=== PATIENT | female | born 1990 | race Caucasian/White ===

== ENCOUNTER 2016-10-22 07:59 | Observation (INO) | payer OTHER ==
[2016-10-22 08:07] VITALS: RESP 16
--- NOTE | 2016-10-22 08:09 | EDPHY ---
H & P Stated Complaint: Bit on R finger yesterday by vaccinated cat at vet office HPI/ROS: HPI CHIEF COMPLAINT: cat bite right hand, right index finger swelling pain and redness HISTORY OF PRESENT ILLNESS: This patient 26-year-old female otherwise healthy no significant medical history does have multiple allergies to multiple antibiotics, she presents emergency room with a cat bite to the right index finger this sustained yesterday while at work. 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 The CT is still in the veterinary office. She is up-to-date on tetanus shot. She presents emergency room due to right index finger swelling pain and redness. There is a obvious bite jairo to the palmar aspect and lateral aspect of the right index finger. Of note on evaluation the right index finger is swollen diffusely, sausage digit , erythema, no neeru pus, it is tender palpation, she is not able to extend the index finger fully due to pain and swelling. It does stay in a flexed position. There is concern for flexor tenosynovitis. patient is right-hand dominant Past Medical History: No medical history Past Surgical History: No surgical history Social History: Denies daily use of drugs alcohol tobacco products, works as a [employer] Family History: Noncontributory ROS REVIEW OF SYSTEMS: A comprehensive 10 point review of systems is otherwise negative aside from elements mentioned in the history of present illness. Exam Constitutional triage nursing summary reviewed, vital signs reviewed, awake/ alert. Eyes normal conjunctivae and sclera, EOMI, PERRLA. HENT normal inspection, atraumatic, moist mucus membranes, no epistaxis, neck supple/ no meningismus, no raccoon eyes. Respiratory clear to auscultation bilaterally, normal breath sounds, no respiratory distress, no wheezing. Cardiovascular rate normal, regular rhythm, no murmur, no edema, distal pulses normal. Gastrointestinal soft, non-tender, no rebound, no guarding, normal bowel sounds, no distension, no pulsatile mass. Genitourinary no CVA tenderness. Musculoskeletal right hand: Index finger is diffusely swollen sausage digit, kept in a flexed position, pain with extension, warm and red obvious cat bite marking. no midline vertebral tenderness, full range of motion, no calf swelling, no tenderness of extremities, no meningismus, good pulses, neurovascularly intact. Skin pink, warm, & dry, no rash, skin atraumatic. Neurologic awake, alert and oriented x 3, AAOx3, moves all 4 extremities equally, motor intact, sensory intact, CN II-XII intact, normal cerebellar, normal vision, normal speech. Psychiatric normal mood/affect. Heme/Lymph/Immune no lymphadenopathy. Differential Diagnosis: Includes but is not limited to in a particular order CAT bite injury, hand infection, finger infection, flexor tenosynovitis., Foreign body in bite wound Medical Decision Making: plan for this patient stab a digit x-ray to evaluate for foreign body, she will be started on antibiotics however she has multiple allergies to antibiotics. Upon review of antibiotic choices she is allergic to penicillin this causes throat swelling, so I cannot give her Augmentin I will give her doxycycline she has never had allergy to this. She does have allergies to sulfa and clinda. Re-evaluation: ED x-ray: right index finger or 2nd digit, soft tissue swelling present. No foreign body visualized. 0907: I did speak with Hand surgery [facility] for Dr. Greer they will come and evaluate her. Most likely plan is for washout. 1st dose of doxycycline has been given here in the emergency room she tolerated this well. X-ray has been reviewed shows no foreign body. Patient updated and is comfortable with most likely OR washout. 0953: Spoke with Hand surgery Kar[facility] for Dr. Greer they would like this patient admitted to the hospital plan for OR later today. Make patient NPO. They requested we hold antibiotics at this time except for the initial dose of doxycycline as they want to get a wound culture. Source: Patient - Personal History LMP (Females 10-55): 8-14 Days Ago Current Tetanus Diphtheria and Acellular Pertussis (TDAP): Yes - Medical/Surgical History Other PMH: healthy - Social History Smoking Status: Current some day smoker Constitutional: Initial Vital Signs Temperature (C) 36.6 C 10/22/16 08:00 Heart Rate 72 10/22/16 08:00 Respiratory Rate 16 10/22/16 08:00 Blood Pressure 120/76 10/22/16 08:00 O2 Sat (%) 98 10/22/16 08:00 O2 Delivery Mode Room Air Allergies/Adverse Reactions: Penicillins Allergy (Severe, Verified 10/22/16 08:07) as kid Sulfa (Sulfonamide Antibiotics) Allergy (Severe, Verified 10/22/16 08:03) as child clindamycin Allergy (Mild, Verified 10/22/16 08:02) Diarrhea Home Medications: Medication Instructions Recorded NK [No Known Home Meds] 10/22/16 Medical Decision Making - Data Points Medications Given: Discontinued Medications Doxycycline Hyclate (Doxycycline Hyclate) 100 mg PO EDNOW ONE PRN Reason: Protocol Stop: 10/22/16 08:20 Last Admin: 10/22/16 08:27 Dose: 100 mg Departure - Departure Disposition: Home, Routine, Self-Care Clinical Impression: Cat bite Qualifiers: Encounter type: initial encounter Qualified Code(s): W55.01XA - Bitten by cat, initial encounter Condition: Fair Referrals: NONE *PRIMARY CARE P,. [Primary Care Provider] - As per Instructions
[2016-10-22] MEDS ORDERED: DOXYCYCLINE HYCLATE 100 MG CAP/TAB PO ONE (08:19)
[2016-10-22 10:18] LABS: ADD DIFF? NO; ADD MORPH? NO; ADD SCAN? NO; ATYPICAL LYMPHOCYTE FLAG 20 (0-99); FRAGMENT RBC FLAG 20 (0-99); HEMATOCRIT 44.3 % (38.0-47.0); HEMOGLOBIN 15.2 g/dL (12.6-16.3); LEFT SHIFT FLG 0 (0-99); LIPEMIA HEMOLYSIS FLAG 90 (0-99); MEAN CELL HEMOGLOBIN 31.7 pg (27.9-34.1); MEAN CELL HEMOGLOBIN CONCENTR. 34.3 g/dL (32.4-36.7); MEAN CELL VOLUME 92.5 fL (81.5-99.8); MEAN PLATELET VOLUME 9.3 fL (8.7-11.7); PLATELET CLUMPS FLAG 10 (0-99); PLATELET COUNT 266 10^3/uL (150-400); RED BLOOD CELL COUNT 4.79 10^6/uL (4.18-5.33)
[2016-10-22 10:39] LABS: ANION GAP 11 mEq/L (8-16); CALCIUM 9.6 mg/dL (8.5-10.4); CARBON DIOXIDE 25 mEq/l (22-31); CHLORIDE 107 mEq/L (97-110); CREATININE 0.8 mg/dL (0.6-1.0); GLOMERULAR FILTRATION RATE > 60; GLUCOSE 72 mg/dL (70-100); POTASSIUM 4.7 mEq/L (3.5-5.2); SODIUM 143 mEq/L (134-144)
[2016-10-22 14:36] VITALS: BP 107/72; PULSE 67; TEMP 98; O2SAT 99
--- NOTE | 2016-10-22 15:42 | PDCONSULT ---
Php Website Developer Note: ORTHOPEDIC CONSULTATION HPI: 26y/o RHLucretia Sanchez presented to the ED c/o cat bite to the right index finger 1 day ago. 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 Pt states she woke up this morning with increased pain and swelling in her finger. An x-ray was taken in the ED and given one dose of oral Doxycycline. Pt was admitted and an orthopedic consult was placed for concern of flexor tenosynovitis and potential for incision and drainage. Pt states her pain is minimal, but she has difficulty flexing the finger secondary to pain. Pt denies any fever, chills, SOB, chest pain, nausea, vomiting, numbness, tingling, drainage, and streaking up the arm. 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 Pt denies any drug, alcohol, or tobacco use. REVIEW OF SYSTEMS: A comprehensive 10-point review is otherwise negative. - Physical Exam Constitutional: no apparent distress Ears, Nose, Mouth, Throat: moist mucous membranes Cardiovascular: pulses symmetric bilaterally Respiratory: no respiratory distress Skin: warm, abrasion (1 puncture wound on the volar surface of the middle phalanx on the right index finger and the lateral middle phalanx with surrounding erythema and no drainage), erythema Musculoskeletal: full muscle strength, no muscle tenderness, other (ROM of the right index finger limited by swelling, full extension and nearly full flexion achieved with PROM, diffuse edema of the right index finger) Neurologic: AAOx3, sensation intact bilaterally, No weakness Psychiatric: interacting appropriately Lymph, Heme, Immunologic: no cervical LAD Assessment & Plan Assessment: s/p cat bite with localized infection Cat bite (Acute) Plan: - Remain NPO - Continue elevation and ice - Consult to ID for antibiotic management - Possible incision and drainage in the OR this evening
--- NOTE | 2016-10-22 16:04 | PCMIDPN ---
Assessment/Plan: R Index finger early tenosynovitis s/p cat bite from fully vaccinated cat- would try conservative therapy first since ROM finger nearly intact --Doxycycline 100mg BID + metronidazole 500mg TID directed at oral destin cats mouth + skin destin: strep, Pasteurella and anaerobes --Rx written and put in chart for discharge --we will call her for follow up in ID clinic --reviewed side effects abx --gave contact information for worsening sx over weekend. Tdap 2007 Full dictation to follow 10/22/16 16:04 Objective: Vital Signs Temp Pulse Resp BP Pulse Ox 36.7 C 67 16 107/72 99 10/22/16 14:25 10/22/16 14:25 10/22/16 14:25 10/22/16 14:25 10/22/16 14:25 Laboratory Results 10/22/16 10:10 10/22/16 10:10 ICD10 Worksheet Patient Problems: Problems Problem Status Onset Cat bite Acute
--- NOTE | 2016-10-22 16:51 | SOAPPROG ---
SOAP Progress Note Assessment/Plan: Assessment: cellulitis but not obvious for tenosynovitis Plan: Observe on oral antibiotics. Appreciate ID eval and recommendations for oral doxycycline and metronidazole. Will follow up Tuesday in office. If worsening we can see sooner in our ortho urgent care this weekend Splint applied for now. 10/22/16 16:48 10/22/16 16:54 Subjective: Pain mild. able to move 2nd finger but stiff. Objective: Vital Signs Temp Pulse Resp BP Pulse Ox 36.7 C 67 16 107/72 99 10/22/16 14:25 10/22/16 14:25 10/22/16 14:25 10/22/16 14:25 10/22/16 14:25 Laboratory Results 10/22/16 10:10 10/22/16 10:10 Moderate swelling and erythema around bite area. no serous drainage able to move. minimal pain with passive extension. flexor sheath relatively supple. ICD10 Worksheet Patient Problems: Problems Problem Status Onset Cat bite Acute
--- NOTE | 2016-10-22 17:29 | GCON ---
[f rep st] CONSULTATION INFECTIOUS DISEASE CONSULTATION. DATE OF CONSULTATION: 10/22/2016 REFERRING PHYSICIAN: Bertin Greer MD REASON FOR CONSULTATION: Possible tenosynovitis, status post cat bite. 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 She immediately washed the area, applied chlorhexidine and dressed it, but she continued to work that day. In the middle of the night patient awoke with increasing throbbing, and she decided to go to an Urgent Care at 4:00 a.m., but it was closed. Therefore she went back home and re- presented to Urgent Care later that day. The ER evaluated her, noticed a sausage digit but no neeru pus, and mild tenderness to palpation. Hand service was consulted, and patient was admitted to the hospital for possible surgical evaluation today. ID is consulted to evaluate for opinion regarding need for surgery, and recommended antibiotics in light of multiple antibiotic allergies. Patient reports that her pain has spontaneously improved. PAST MEDICAL HISTORY: She has a history of clostridium difficile approximately 3 years ago, she received p.o. vancomycin. This started while she was receiving clindamycin for a tooth infection. PAST SURGICAL HISTORY: She has had wisdom tooth extraction. SOCIAL HISTORY: She smokes marijuana, no tobacco, occasional alcohol. She works in a [employer] clinic, she has a boyfriend. REVIEW OF SYSTEMS: A complete 10-point review of systems was performed and is negative except as mentioned in the HPI. IMMUNIZATION STATUS: TDAP in 2007. PHYSICAL EXAM: VITAL SIGNS: Blood pressure 107/72, heart rate 67, respiratory rate 16, saturation 99% on room air, temperature 36.7. GENERAL: This is a young, nontoxic-appearing woman sitting in bed, fluent speech. HEENT: Pupils are reactive bilaterally. Oropharynx with good dentition. Moist mucous membranes. NECK: Supple, no lymphadenopathy. CARDIOVASCULAR: Regular rate and rhythm, no murmurs. CHEST: Clear to auscultation bilaterally. ABDOMEN: Soft, nontender. EXTREMITIES: Her right hand showed a swollen index finger with very slight limitation to full extension and full flexion, but close to 95 % of normal. As mentioned, she has generalized swelling, very mild erythema with obvious puncture wounds over the distal phalanges. No joint effusion noted. She had 2+ radial pulses, and good capillary refill. NEUROLOGIC: She is alert and oriented x4, with a normal gait and normal strength. LABORATORY DATA: White count 6.3, hematocrit 44, platelets of 266, creatinine 0.8. IMAGING: A plain film of the hand was performed, and showed soft tissue swelling. No fracture or osteomyelitis. ASSESSMENT AND PLAN: This is a 26-year-old woman who is generally healthy, who works in a [employer], who presents to the emergency room with right index finger swelling after a cat bite, consistent with cellulitis vs early tenosynovitis. Importantly her range of motion of the first finger is nearly intact, therefore reasonable to try conservative therapy first with PO antibiotics. The patient has multiple antibiotic allergies. She has throat swelling to penicillin, as well as sulfa, and she developed clostridium difficile to clindamycin - therefore reasonable to avoid all of these agents. RECOMMENDATIONS: 1. Doxycycline 100 mg twice daily and metronidazole 500 mg three times daily directed at typical oral destin in cat's mouth including Staph and strep, Pasteurella and anaerobes. Length of therapy to be determined by response, between 7 to 10 days. 2. Will see clinic in the next early next week. 3. Reviewed side effects of antibiotics including sun sensitivity, interaction with cations such as zinc, calcium and magnesium, needs to remain upright with taking oral antibiotic therapy for 2 hours to prevent esophagitis, and Antabuse- like reaction with metronidazole. Also warnings about s/s of recurrent c.diff. 4. Patient was given contact information to contact us for worsening symptoms over the weekend. Discharge okay from stand point of infectious disease. 5. Keep up to date on Tdap, due 2018 6. Elevated R hand has much as possible for the next 2-3 days. Thank you for this consultation, we will continue to follow as an outpatient. /[id number]/MODL MTDD
--- NOTE | 2016-10-23 14:41 | PDDCSUM ---
Discharge Summary Discharge Summary: 26y/o F was admitted for observation and potential incision and drainage in the OR of the right index finger. Pt sustained a cat bite to the right index finger 10/21/2016, and presented to the ED the following day for increased pain and swelling in the finger. Pt was given one dose of oral Doxycycline in the ED , and then remained NPO with anticipation of needing surgical intervention. Ultimately, a decision was made to treat the infection conservatively. Infectious disease was consulted for antibiotic management as an outpatient. Hospital course was otherwise uneventful.
== END 2016-10-22 17:30 | disposition home or self-care (01) ==
LOC: INTOOBSV 09:52 → FOB 11:07
PROVIDERS: ADMIT Orthopaedic Surgery Sports Medicine; ATTEND Orthopaedic Surgery Sports Medicine
DX: S61.230A Puncture wound without foreign body of right index finger without damage to nail, initial encounter (principal); M65.141 Other infective (teno)synovitis, right hand; W55.01XA Bitten by cat, initial encounter; Y92.531 Health care provider office as the place of occurrence of the external cause; Y99.0 Civilian activity done for income or pay
CPT/HCPCS: 73140; G0378